=== PATIENT | female | born 1955 | race Caucasian/White ===

== ENCOUNTER → 2016-12-23 | Outpatient (CLI) | payer OTHER ==
[~2016-12-23] MED LIST: BUTA1CAP PO; CALC600T25 PO; CYCL1TAB29 PO; GLUCTAB6 PO; LEVO.075 PO; MULT-135 PO; OMEG100010 PO
[2016-12-23 13:17] LABS: ALT (GPT) 28 U/L (10-53); ANION GAP 9 MEQ/L (5-15); AST (GOT) 32 U/L (15-37); BICARBONATE 27.8 MEQ/L (21.0-32.0); BLOOD UREA NITROGEN 20 MG/DL (7-18); CHLORIDE 105 MEQ/L (98-107); GLOMERULAR FILTRATION RATE 75 ML/MIN (>89); GLUCOSE,FASTING 76 MG/DL (74-99); POTASSIUM 3.9 MEQ/L (3.5-5.1); SODIUM (NA) 142 MEQ/L (136-145)
[2016-12-23 13:26] LABS: ALKALINE PHOSPHATASE 66 U/L (45-117); HDL CHOLESTEROL 87.9 MG/DL (40.0-60.0); LDL CHOLESTEROL 115 MG/DL (0-99); TOTAL BILIRUBIN ADULT 0.5 MG/DL (0.2-1.0)
== END ==
LOC: OLAB 08:27
PROVIDERS: ATTEND Internal Medicine Endocrinology, Diabetes & Metabolism
DX: E03.9 Hypothyroidism, unspecified (principal); E78.5 Hyperlipidemia, unspecified; M85.80 Other specified disorders of bone density and structure, unspecified site
CPT/HCPCS: 80053; 80061; 82306; 84439; 84443

== ENCOUNTER → 2017-03-01 | Outpatient (CLI) | payer OTHER ==
[~2017-03-01] MED LIST changes: -CALC600T25 PO; +CYCL10TA PO; -CYCL1TAB29 PO; -GLUCTAB6 PO; -MULT-135 PO; -OMEG100010 PO
[2017-03-04 03:52] LABS: N-TELOPEPTIDE NTX 30 (4-64)
== END ==
LOC: OLAB 10:48
PROVIDERS: ATTEND Internal Medicine Endocrinology, Diabetes & Metabolism
DX: M81.0 Age-related osteoporosis without current pathological fracture (principal)
CPT/HCPCS: 82523